=== PATIENT | male | born 1950 | race Caucasian/White ===

== ENCOUNTER → 2019-02-04 13:10 | Outpatient (CLI) | payer MEDICARE, OTHER, SELFPAY ==
--- NOTE | 2019-02-04 | DI.RAD.S_ITS ---
PROCEDURE: XR SHOULDER RT MIN 2V INDICATIONS: RIGHT SHOULDER PAIN TECHNIQUE: 3 views of the shoulder were acquired. COMPARISON: [facility], MR, [email or web address] JOINT W&WO CONTR, 12/29/2009, 15:34. [facility], CR, HUMERUS 2V RIGHT, 12/24/2009, 12:24. [facility], CR, HUMERUS 2V LEFT, 12/24/2009, 12:24. [facility], CR, CHEST 2 VIEW, 08/14/2014, 14:16. FINDINGS: Bones: No fractures or dislocations. No suspicious bony lesions. Visualized ribs appear intact. [id number] NATALIE glenohumeral joint effusion. Prominent calcified lesion within the right proximal humeral intramedullary compartment with chondroid appearing matrix appears grossly unchanged dating back to 12/24/09. Mild lateral downsloping appearance of the acromion Soft tissues: No suspicious soft tissue calcifications. 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 No interval change since 12/24/09. Mild lateral downsloping appearance of the acromion. Dictated by: Guanako Sam M.D. on 02/04/2019 at 14:52 Approved by: Guanako Sam M.D. on 02/04/2019 at 14:55
--- NOTE | 2019-02-04 | DI.RAD.S_ITS ---
PROCEDURE: XR HUMERUS RT 2V INDICATIONS: RIGHT SHOULDER PAIN TECHNIQUE: 2 views of the humerus were acquired. COMPARISON: [facility], HUMERUS 2V RIGHT, 12/24/2009, 12:24. [facility], HUMERUS 2V LEFT, 12/24/2009, 12:24. FINDINGS: Bones: No fractures or dislocations. No suspicious bony lesions. No interval change in large calcified intramedullary lesion involving the proximal right humerus since 2009. This measures 13.5 cm in cephalocaudad dimension as before Soft tissues: No suspicious soft tissue calcifications. IMPRESSION: No interval change in large calcified intramedullary lesion involving the proximal right humerus since 12/24/09. Dictated by: Guanako Sam M.D. on 02/04/2019 at 14:55 Approved by: Guanako Sam M.D. on 02/04/2019 at 14:57
== END ==
PROVIDERS: PCP Internal Medicine; Visit Provider Internal Medicine
DX: M25.511 Pain in right shoulder (principal); M19.011 Primary osteoarthritis, right shoulder; M25.811 Other specified joint disorders, right shoulder
CPT/HCPCS: 73030; 73060

== ENCOUNTER → 2019-05-01 13:46 | Outpatient (CLI) | payer MEDICARE, OTHER, SELFPAY ==
--- NOTE | 2019-05-01 | DI.RAD.S_ITS ---
PROCEDURE: XR CHEST 2V INDICATIONS: Disease of esophagus, unspecified TECHNIQUE: 2 views of the chest were acquired. COMPARISON: [facility], , CHEST 2 VIEW, 08/14/2014, 14:16. FINDINGS: Surgical changes and devices: None. Lungs and pleura: Lungs are clear. No pleural effusions or pneumothorax. Mediastinum: Mediastinal contours are normal. Heart size is normal. Moderate-sized air-fluid level within a hiatal hernia behind the heart, previously present Bones and chest wall: No suspicious bony abnormalities. Soft tissues appear unremarkable. IMPRESSION: No acute disease, moderate-sized hiatal hernia containing air-fluid level noted behind the heart, previously present. Dictated by: Ganga Edwards M.D. on 05/01/2019 at 14:56 Approved by: Ganga Edwards M.D. on 05/01/2019 at 14:56
== END ==
PROVIDERS: PCP Internal Medicine; Visit Provider Internal Medicine
DX: K22.9 Disease of esophagus, unspecified (principal); K44.9 Diaphragmatic hernia without obstruction or gangrene; R53.83 Other fatigue; Z87.891 Personal history of nicotine dependence
CPT/HCPCS: 71046